=== PATIENT | male | born 1950 | race Caucasian/White ===

== ENCOUNTER 2021-10-10 18:17 | Inpatient (IN) | payer BC, MEDICARE ==
[~2021-10-10] VITALS: Ht 165.1 cm; Wt 73.3 kg
[2021-10-10 19:45] LABS: BASOPHILS % (AUTO) 0.4 % (0.0-2.0); EOSINOPHILS % (AUTO) 0 % (1.0-6.0); HEMATOCRIT 35.6 % (41-53); HEMOGLOBIN 11.5 g/dL (13.5-17.5); LYMPHOCYTES # (AUTO) 0.9 K/uL (1.0-4.8); LYMPHOCYTES % (AUTO) 4.1 % (22.0-44.0); MEAN CORPUSCULAR HEMOGLOBIN 20.3 pg (26.0-34.0); MEAN CORPUSCULAR HGB CONC 32.4 G/dL (31.0-37.0); MEAN CORPUSCULAR VOLUME 63 fL (80-100); MONOCYTES # (AUTO) 1.1 K/uL (0.1-1.0); MONOCYTES % (AUTO) 5.1 % (2.0-9.0); NEUTROPHILS # (AUTO) 19.6 K/uL (1.8-7.7); NEUTROPHILS % (AUTO) 90.4 % (40.0-70.0); PLATELET COUNT (AUTO) 184 K/uL (150-450); RED BLOOD CELL COUNT(AUTO) 5.67 MIL/uL (4.50-5.90); RED CELL DISTRIBUTION WIDTH 15.8 % (11.5-14.5)
[2021-10-10 20:06] LABS: ALANINE AMINOTRANSFERASE 28 U/L (12-78); ALBUMIN 3.6 g/dL (3.4-5.0); ALKALINE PHOSPHATASE 71 U/L (46-116); ASPARTATE AMINOTRANSFERASE 11 U/L (15-37); BILIRUBIN,TOTAL 1.2 mg/dL (0.1-1.0); CALCIUM, TOTAL 8.8 mg/dL (8.8-10.5); CARBON DIOXIDE 24 mmol/L (22-29); CHLORIDE 84 mmol/L (98-107); CREATININE 0.62 mg/dL (0.60-1.30); GLUCOSE,RANDOM 242 mg/dL (70-110); LIPASE 49 U/L (73-393); POTASSIUM 4.4 mmol/L (3.5-5.1); TOTAL PROTEIN, SERUM 7.5 g/dL (6.4-8.2); UREA NITROGEN, BLOOD 5 mg/dL (7-18)
[2021-10-10 20:08] LABS: GLOMERULAR FILTR. RATE CALC > 60 mL/min (>60)
[2021-10-10 20:14] LABS: ANION GAP 12 mmol/L (8-16); SODIUM SERUM 120 mmol/L (136-145)
[2021-10-10 20:56] LABS: APPEARANCE,URINE CLEAR (CLEAR); BILIRUBIN,URINE NEGATIVE (NEGATIVE); GLUCOSE, URINE (UA) >=1000 mg/dL (NEGATIVE); LEUKOCYTE ESTERASE ,URINE NEGATIVE (NEGATIVE); NITRATE,URINE NEGATIVE (NEGATIVE); OCCULT BLOOD,URINE NEGATIVE (NEGATIVE); PH,URINE 6.5 (5.0-8.0); PROTEIN,URINE TRACE mg/dL (NEGATIVE); SPECIFIC GRAVITIY, URINE 1.007 (1.003-1.030); UROBILINOGEN,URINE <=1.0 mg/dL (<=1.0)
[2021-10-10 21:04] LABS: BACTERIA,URINE None Seen /HPF (None Seen); RBC,URINE 0-2 /HPF (0-2); WBC,URINE None Seen /HPF (0-5)
[2021-10-10] MEDS ORDERED: IOHEXOL 350 MG/ML 100 ML VIAL ONE (22:26)
[2021-10-10] MEDS ORDERED: SODIUM CHLORIDE 0.9% 100 ML ONE (22:26)
[2021-10-10] MEDS ORDERED: PIPERACILLIN SODIUM/TAZOBACTAM 4.5 GM in DEXTROSE 5%-WATER 100 ML IV ONE (22:30)
[2021-10-10] MEDS ORDERED: LISI-657 PO (22:50)
[2021-10-10] MEDS ORDERED: METF-1211 PO (22:50)
[2021-10-10 23:10] LABS: COVID AG,FIA SOURCE NASAL SWAB
[2021-10-11] VITALS (7 sets, daily range): BP systolic 110–133; BP diastolic 58–72
[2021-10-11] MEDS ORDERED: MORPHINE SULFATE 4 MG/ML SYRINGE IVP ONE
[2021-10-11] MEDS ORDERED: ACETAMINOPHEN 500 MG TABLET PO ONE
[2021-10-11] MEDS ORDERED: PNEUMOCOCCAL VACCINE POLYVALENT 0.5 ML VIAL [PPSV23] IM. ONE (03:30)
[2021-10-11] MEDS ORDERED: BUPIVACAINE/EPI/PF 0.5% 30 ML VIAL ONE (07:24)
[2021-10-11] MEDS ORDERED: SODIUM CHLORIDE 0.9% 1,000 ML ONE (07:25)
[2021-10-11] MEDS ORDERED: RINGERS SOLUTION,LACTATED 1,000 ML IV ONE (07:25)
[2021-10-11] MEDS ORDERED: MEPERIDINE-PF 25 MG/ML VIAL IVP PRN (08:15)
[2021-10-11] MEDS ORDERED: HYDROmorphone 2 MG/ML VIAL IVP PRN (08:15)
[2021-10-11] MEDS ORDERED: FentaNYL CITRATE PF 100 MCG/2 ML VIAL IVP PRN (08:15)
[2021-10-11] MEDS ORDERED: OxyCODONE HCL 5 MG IR TABLET PO PRN (08:45)
[2021-10-11] MEDS: ACETAMINOPHEN 500 MG TABLET PO SCH ×3 (09:00→21:13)
[2021-10-11 09:16] LABS: GLUCOMETER DEV NAME(LOC) 5S.2B; GLUCOSE,POINT OF CARE 179 MG/DL (70-110)
[2021-10-11] MEDS ORDERED: BUPIVACAINE 0.25%/EPI 1:200,000/PF 10 ML VIAL ONE (09:18)
[2021-10-11] MEDS ORDERED: ONDANSETRON HCL 4 MG/2 ML VIAL IVP PRN (10:30)
[2021-10-11] MEDS ORDERED: ZOLPIDEM TARTRATE 5 MG TABLET PO PRN (10:30)
[2021-10-11] MEDS ORDERED: MORPHINE SULFATE 2 MG/ML SYRINGE IVP PRN (10:30)
[2021-10-11] MEDS ORDERED: MAGNESIUM HYDROXIDE SUSPENSION 30 ML UDCUP PO PRN (10:30)
[2021-10-11] MEDS ORDERED: ACETAMINOPHEN 325 MG TABLET PO PRN (10:30)
[2021-10-11] MEDS ORDERED: BISACODYL 10 MG RECTAL RECTAL SUPPOSITORY PR PRN (10:30)
[2021-10-11] MEDS ORDERED: SODIUM CHLORIDE 0.9% 250 ML IV ONE (10:49)
[2021-10-11] MEDS: CefTRIAXone 1 GM/DEXTROSE 50 ML IV SCH (11:14)
[2021-10-11] MEDS: HYDROCODONE/ACETAMINOPHEN 5-325 MG TABLET PO PRN ×2 (11:32→20:26)
[2021-10-11] MEDS: IBUPROFEN 600 MG TABLET PO SCH ×3 (11:33→23:08)
[2021-10-11] MEDS: MetroNIDAZOLE 500 MG TABLET PO SCH ×3 (11:33→21:42)
[2021-10-11 11:57] LABS: ANION GAP 8 mmol/L (8-16); CALCIUM, TOTAL 8.4 mg/dL (8.8-10.5); CARBON DIOXIDE 28 mmol/L (22-29); CHLORIDE 92 mmol/L (98-107); CREATININE 0.76 mg/dL (0.60-1.30); GLOMERULAR FILTR. RATE CALC > 60 mL/min (>60); GLUCOSE,RANDOM 259 mg/dL (70-110); POTASSIUM 4.8 mmol/L (3.5-5.1); SODIUM SERUM 128 mmol/L (136-145); UREA NITROGEN, BLOOD 7 mg/dL (7-18)
[2021-10-11 12:46] LABS: GLUCOMETER DEV NAME(LOC) 5S.1B; GLUCOSE,POINT OF CARE 293 MG/DL (70-110)
[2021-10-11] MEDS: PIPERACILLIN/TAZO 3.375 GM/D5W 50 ML IV SCH ×2 (14:38→20:20)
[2021-10-11] MEDS: HEPARIN SODIUM,PORCINE 5,000 UNITS/ML VIAL SQ SCH ×2 (16:18→23:11)
[2021-10-11] MEDS ORDERED: DEXTROSE 50%-WATER 25 GM/50 ML SYRINGE IVP PRN (16:45)
[2021-10-11] MEDS: LISINOPRIL 20 MG TABLET PO SCH (17:02)
[2021-10-11] MEDS: INSULIN LISPRO 100 UNITS/ML SQ PRN ×2 (17:03→21:18)
[2021-10-11 18:21] LABS: GLUCOMETER DEV NAME(LOC) 6N.1; GLUCOSE,POINT OF CARE 356 MG/DL (70-110)
[2021-10-11] MEDS: OXYGEN THERAPY IH SCH (20:00)
[2021-10-11] MEDS: DOCUSATE SODIUM 100 MG CAPSULE PO SCH (21:13)
[2021-10-11 23:52] LABS: GLUCOMETER DEV NAME(LOC) 6N.1; GLUCOSE,POINT OF CARE 241 MG/DL (70-110)
[2021-10-12] MEDS: PIPERACILLIN/TAZO 3.375 GM/D5W 50 ML IV SCH ×3 (02:15→14:06)
[2021-10-12 04:32] VITALS: BP 104/53
[2021-10-12 05:31] LABS: EOSINOPHILS % (AUTO) 0 % (1.0-6.0); HEMATOCRIT 31.7 % (41-53); HEMOGLOBIN 10.1 g/dL (13.5-17.5); LYMPHOCYTES # (AUTO) 0.5 K/uL (1.0-4.8); LYMPHOCYTES % (AUTO) 3.6 % (22.0-44.0); MEAN CORPUSCULAR HEMOGLOBIN 20.3 pg (26.0-34.0); MEAN CORPUSCULAR HGB CONC 31.8 G/dL (31.0-37.0); MEAN CORPUSCULAR VOLUME 64 fL (80-100); MONOCYTES # (AUTO) 0.6 K/uL (0.1-1.0); MONOCYTES % (AUTO) 4.4 % (2.0-9.0); NEUTROPHILS # (AUTO) 11.7 K/uL (1.8-7.7); PLATELET COUNT (AUTO) 158 K/uL (150-450); RED BLOOD CELL COUNT(AUTO) 4.97 MIL/uL (4.50-5.90); RED CELL DISTRIBUTION WIDTH 16.2 % (11.5-14.5)
[2021-10-12 05:47] LABS: ANION GAP 11 mmol/L (8-16); CALCIUM, TOTAL 8.5 mg/dL (8.8-10.5); CARBON DIOXIDE 27 mmol/L (22-29); CHLORIDE 94 mmol/L (98-107); CREATININE 1.06 mg/dL (0.60-1.30); GLUCOSE,RANDOM 197 mg/dL (70-110); POTASSIUM 4.1 mmol/L (3.5-5.1); SODIUM SERUM 132 mmol/L (136-145); UREA NITROGEN, BLOOD 17 mg/dL (7-18)
[2021-10-12 05:51] LABS: GLOMERULAR FILTR. RATE CALC > 60 mL/min (>60)
[2021-10-12] MEDS ORDERED: MORPHINE SULFATE/PF 0.5 MG/ML 10 ML AMP IVP ONE (06:05)
[2021-10-12] MEDS ORDERED: LIDOCAINE/PF 2% 5 ML VIAL IM ONE (06:05)
[2021-10-12] MEDS ORDERED: MIDAZOLAM HCL 2 MG/2 ML VIAL IVP ONE (06:05)
[2021-10-12] MEDS ORDERED: DEXAMETHASONE SOD PHOS 4 MG/ML VIAL IVP ONE (06:05)
[2021-10-12] MEDS ORDERED: ONDANSETRON HCL 4 MG/2 ML VIAL IVP ONE (06:05)
[2021-10-12] MEDS ORDERED: 0.9% SODIUM CHLORIDE 10 ML VIAL IVP ONE (06:05)
[2021-10-12] MEDS ORDERED: FentaNYL CITRATE PF 100 MCG/2 ML VIAL IVP ONE (06:05)
[2021-10-12] MEDS ORDERED: ROCURONIUM BROMIDE 10 MG/ML 5 ML VIAL IVP ONE (06:05)
[2021-10-12] MEDS ORDERED: KETOROLAC TROMETHAMINE 60 MG/2 ML VIAL IM ONE (06:05)
[2021-10-12] MEDS ORDERED: PROPOFOL 1% 20 ML VIAL IVP ONE (06:05)
[2021-10-12] MEDS: IBUPROFEN 600 MG TABLET PO SCH ×2 (06:29→12:09)
[2021-10-12] MEDS: INSULIN LISPRO 100 UNITS/ML SQ PRN ×2 (06:35→12:10)
[2021-10-12 07:36] LABS: GLUCOMETER DEV NAME(LOC) 6N.1; GLUCOSE,POINT OF CARE 186 MG/DL (70-110)
[2021-10-12 07:55] VITALS: BP 105/56
[2021-10-12] MEDS: OXYGEN THERAPY IH SCH (08:00)
[2021-10-12] MEDS: CefTRIAXone 1 GM/DEXTROSE 50 ML IV SCH (08:23)
[2021-10-12] MEDS: DOCUSATE SODIUM 100 MG CAPSULE PO SCH (08:24)
[2021-10-12] MEDS: ACETAMINOPHEN 500 MG TABLET PO SCH ×2 (08:24→16:19)
[2021-10-12] MEDS: LISINOPRIL 20 MG TABLET PO SCH (08:24)
[2021-10-12] MEDS: HEPARIN SODIUM,PORCINE 5,000 UNITS/ML VIAL SQ SCH ×2 (08:26→16:00)
[2021-10-12] MEDS: MetroNIDAZOLE 500 MG TABLET PO SCH ×2 (08:27→16:18)
[2021-10-12] MEDS ORDERED: PANTOPRAZOLE SODIUM 40 MG DR TABLET PO SCH (09:00)
[2021-10-12 12:36] LABS: GLUCOMETER DEV NAME(LOC) 6N.2; GLUCOSE,POINT OF CARE 205 MG/DL (70-110)
[2021-10-12 15:35] VITALS: BP 110/58
[2021-10-12] MEDS ORDERED: AMOX1TAB16 PO (16:44)
== END 2021-10-12 16:55 | disposition home or self-care (01) | DRG 853 ==
LOC: EMS 18:18 → 5S 10-11 00:54 → 6S 10-11 14:00
PROVIDERS: ADMIT Internal Medicine; ATTEND Internal Medicine
PROC: 0DTJ4ZZ Resection of Appendix, Percutaneous Endoscopic Approach (ICD-10-PCS; principal; 2021-10-11 07:35)
DX: A41.9 Sepsis, unspecified organism (principal); K35.32 Acute appendicitis with perforation, localized peritonitis, and gangrene, without abscess; E87.1 Hypo-osmolality and hyponatremia; D64.9 Anemia, unspecified; E11.65 Type 2 diabetes mellitus with hyperglycemia; I10 Essential (primary) hypertension; K38.1 Appendicular concretions; Z20.822 Contact with and (suspected) exposure to COVID-19; Z79.4 Long term (current) use of insulin
CPT/HCPCS: 74177; 80048; 80053; 81001; 81003; 82962; 83605; 83690; 84484; 85025; 88304; 93005; 99285; G0238; J0690; J0696; J1100; J1644; J1885; J2250; J2270; J2274; J2405; J2543; J2704; J3010; J3490; J7030; J7050; J7060; J7120; Q9967

== ENCOUNTER 2025-05-03 10:19 | Emergency (ER) | payer MEDICARE ==
[~2025-05-03] VITALS: Ht 165.1 cm; Wt 82.7 kg
[~2025-05-03 10:19] MED LIST: AMOX-457 PO; LISI-657 PO; METF-1211 PO
[2025-05-03 10:40] VITALS: TEMP 98.2
[2025-05-03] MEDS ORDERED: CYCL-397 PO (10:45)
[2025-05-03] MEDS ORDERED: ATOR20TA65 PO (10:45)
[2025-05-03] MEDS ORDERED: AMLO5TAB66 PO (10:45)
[2025-05-03] MEDS ORDERED: LISI-663 PO (10:45)
[2025-05-03 11:46] LABS: PLATELET COUNT (AUTO) 180 K/uL (150-450); RED BLOOD CELL COUNT(AUTO) 5.38 MIL/uL (4.50-5.90); RED CELL DISTRIBUTION WIDTH 16.3 % (11.5-14.5); WHITE BLOOD COUNT (AUTO) 7.3 K/uL (4.5-11.0)
[2025-05-03] MEDS: KETOROLAC TROMETHAMINE 30 MG/ML VIAL IM ONE (11:49)
[2025-05-03] MEDS: LIDOCAINE 5% TRANSDERMAL PATCH TD ONE (11:49)
[2025-05-03] MEDS: ACETAMINOPHEN 500 MG TABLET PO ONE (11:50)
[2025-05-03 11:56] LABS: CALCIUM, TOTAL 8.9 mg/dL (8.8-10.5); CREATININE 0.53 mg/dL (0.60-1.30); GLOMERULAR FILTR. RATE CALC > 60 mL/min (>60); GLUCOSE,RANDOM 142 mg/dL (70-110); SODIUM SERUM 126 mmol/L (136-145); UREA NITROGEN, BLOOD 6 mg/dL (7-18)
[2025-05-03 12:04] LABS: RBC MORPHOLOGY COMMENT ABNORMAL RBC MORPH
[2025-05-03] MEDS: MORPHINE SULFATE 2 MG/ML SYRINGE IVP ONE (13:01)
[2025-05-03 13:15] LABS: APPEARANCE,URINE CLEAR (CLEAR); GLUCOSE, URINE (UA) NEGATIVE (NEGATIVE); LEUKOCYTE ESTERASE ,URINE NEGATIVE (NEGATIVE); NITRATE,URINE NEGATIVE (NEGATIVE); OCCULT BLOOD,URINE NEGATIVE (NEGATIVE); SPECIFIC GRAVITIY, URINE 1.006 (1.003-1.030)
[2025-05-03 14:48] VITALS: BP 138/60; PULSE 62; RESP 20; O2SAT 97
== END 2025-05-03 14:49 | disposition left against medical advice (07) ==
LOC: EMS 10:19
DX: M54.16 Radiculopathy, lumbar region (principal); M54.50 Low back pain, unspecified; E11.9 Type 2 diabetes mellitus without complications; I10 Essential (primary) hypertension; Z90.49 Acquired absence of other specified parts of digestive tract; Z74.01 Bed confinement status; Z79.899 Other long term (current) drug therapy
CPT/HCPCS: 99285; 72148; 96374; 80048; 81003; 85025; 36415; 96372; J1885; J2270